=== PATIENT | female | born 1945 | race Caucasian/White ===

== ENCOUNTER 2025-07-01 08:01 | Outpatient (AMB) | payer MEDICARE, SELFPAY ==
[2025-07-01 08:10] VITALS: BP 142/60; PULSE 62; RESP 16; O2SAT 97; BMI 25.9
--- NOTE | 2025-07-01 08:10 | MHC.OFFVIS ---
Vital Signs 07/01/25 08:10 Height 5 ft 1 in Weight 137 lb BMI 25.9 BP 142/60 H Blood Pressure Location Rt brachial Position Sitting Respiration 16 Pulse 62 Pulse Source Pulse Oximeter Pulse Oximetry (%) 97 Oxygen Delivery Method Room Air Intake Visit Reasons: 6 month f/u VR patient Family Practice Doctor Required: No Allergies lisinopril Allergy (Unknown, Verified 07/01/25 08:12) Unknown HPI Comments Details: Mojgan is a 80-year-old female patient with a past medical history of multiple sclerosis, lupus, and Sjogren's disease here today for a follow-up. She has been followed by Dr. Lassiter for her MS. She last saw him in November of 2024. At the time of her last visit with him, her exam and symptoms were stable on dimethyl fumarate. Despite some occasional loose stools related to the dimethyl fumarate, the patient had often to remain on this medication. She tells me today that overall she has been stable. Her chronic symptoms include some weakness to her lower extremities bilaterally especially going up and downstairs and she becomes easily fatigued. There was not really any described focal weakness. She has a paresthesias to her feet bilaterally including a sensation that her feet are wrapped in plastic. This has been ongoing. She denies any recent falls though does have some difficulty with balance from time to time. She denies any changes to her bladder including any incontinence, dribbling, or retention. She notes that her bowels have been okay though she does have some diarrhea on occasion especially when she does not have her [employer] with food. She had some concerns today regarding some findings on pulmonary imaging including some interstitial changes and some fibrotic changes. She has recently established with pulmonology. She has also had 2 pneumonias in the last couple of years. She does have some concerns that her MS, lupus, or Sjogren's may play a role in this. She is asking for input from Dr. Lassiter. Prior workup: MRI spine 12/21/2022: Stable T4 lesion and no new lesions. MRI of the brain 12/21/2022: Extensive white matter lesions unchanged from prior. [facility] Medical History (Updated 07/01/25 @ 10:43 by Karen Boone CNP) Low back pain Peripheral neuropathy Multiple sclerosis Review of Systems Const All systems reviewed & are unremarkable except as noted in HPI and below Physical Exam Vital Signs: Last Vital Signs Pulse 62 07/01/25 08:10 Resp 16 07/01/25 08:10 BP 142/60 H 07/01/25 08:10 Pulse Ox 97 07/01/25 08:10 Oxygen Delivery Method Room Air 07/01/25 08:10 BMI result Body Mass Index 25.9 Const General: cooperative, healthy appearing, comfortable and no acute distress Nutritional Appearance: well nourished Orientation/consciousness: patient oriented x3 Limitations: no limitations HEENT Head: Yes normal to inspection and Yes normocephalic Eyes General: appearance normal, both eyes and all related structures Visual Quiroz: normal visual quiroz by confrontation Alignment and Position: alignment normal Periorbital: periorbital findings normal Eyelids: Yes eyelids normal Conjunctivae: conjunctivae normal Sclerae: sclerae normal Direct Ophthalmoscopy: normal light reflex, no papilledema and fundi normal bilaterally Neck Neck: Yes normal visual inspection and Yes full ROM General: Yes no CVA tenderness Back/Spine/Pelvis Back: no CVA tenderness Cervical Spine: normal cervical lordosis Thoracic/Lumbar Spine: thoracic and lumbar spine normal to inspection Neuro General: patient oriented x3 and tone normal Cranial nerves: Yes CN's II-XII intact bilaterally and Yes Facial sensation intact/muscles of mastication intact Cognition (Neuro): normal cognition Gait exam (Neuro): Normal gait present Motor exam (neuro): no tremor noted and Abnormal motor strength present (4/5 throughout) Sensory Exam: double simultaneous stimulation for sensation normal Deep tendon reflexes (DTR's): Right triceps reflex intensity grade: 2+, Left triceps reflex intensity grade: 2+, Rt Biceps (C5, C6): 2+, Left biceps reflex intensity grade: 2+, Right brachioradialis reflex intensity grade: 2+, Left brachioradialis reflex intensity grade: 2+, Right patellar reflex intensity grade: 1+, Left patellar reflex intensity grade: 2+, Right ankle reflex intensity grade: 2+ and Left ankle reflex intensity grade: 2+ Romberg Test: Negative Pupils: Normal pupillary reactivity/response: bilateral Psych Appearance: grossly normal Mental Status: mental status grossly normal Speech and movement: Normal speech and movement present and Clear speech present Affect: normal affect Attitude: cooperative Thought process: Normal thought process present Thought content: Normal thought content present Insight: Good insight present (Psych) Judgement: Good judgement present (Psych) Assessment & Plan Assessment & Plan (1) Multiple sclerosis: Code(s): G35 - Multiple sclerosis Category: Medical Plan Mojgan is a 80-year-old female patient with a past medical history of multiple sclerosis, lupus, and Sjogren's disease here today for a follow-up. She has been followed by Dr. Lassiter for her MS. She last saw him in November of 2024. At the time of her last visit with him, her exam and symptoms were stable on dimethyl fumarate. Despite some occasional loose stools related to the dimethyl fumarate, the patient had often to remain on this medication. Once again, she is stable in her symptoms and wishes to continue on the dimethyl fumarate despite some manageable side effects. She does have some questions today about her MS playing a role in the fibrotic changes and interstitial changes noted on her imaging studies. I did explain that it is possible her medications may predispose her slightly to pneumonia however I was not able to speak to any other relationship between her MS and these findings. 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 Lassiter who may weigh in on the matter. She has not had imaging since December of 2022. I think reasonably, we can consider repeat imaging again in the spring for routine surveillance. Otherwise, no other changes at this time. Coding Level of Care Code Est Pt Level 3 (05288) Diagnoses Multiple sclerosis G35
== END 2025-07-01 08:34 | disposition home or self-care (01) ==
PROVIDERS: PCP Physician Assistant Medical; Visit Provider Nurse Practitioner
DX: G35.D Multiple sclerosis, unspecified (principal)
CPT/HCPCS: 99213

== ENCOUNTER → 2025-07-01 08:01 | Outpatient (BNVA) | payer MEDICARE, SELFPAY | PROVIDERS: PCP Physician Assistant Medical; Visit Provider Nurse Practitioner | DX: G35.D Multiple sclerosis, unspecified (principal) | CPT/HCPCS: 99212 ==